=== PATIENT | male | born 1955 | race Caucasian/White ===

== ENCOUNTER 2018-06-03 05:55 | Emergency (ER) | payer OTHER, SELFPAY ==
[2018-06-03 06:08] VITALS: BP 169/97; PULSE 114; RESP 20; TEMP 36.6; O2SAT 98; BMI 28.1
--- NOTE | 2018-06-03 06:21 | ED.HA ---
HPI - Headache <Ping Neumann DO - Last Filed: 06/04/18 19:40> General Chief Complaint: Headache Stated Complaint: headache x 2 months, neck/back pain Time Seen by Provider: 06/03/18 06:20 Source: patient Mode of arrival: ambulatory Limitations: no limitations History of Present Illness HPI Narrative: Patient is a 62-year-old male who presents with neck pain. It has been ongoing for a number of months. He has pain to the up the the base of his skull. He has been taking Aleve is 2 with a time twice a day without any relief. He has decreased range of motion due to pain. If he turns his head is to the right he gets a tingling in his left arm. His he has no numbness or tingling otherwise in his arms no weakness. He did have an abscess back in 2017 which was drained he thinks that this may be related to that. He feels like it is causing a headache. He has no vision changes and the headache is really at the top of his neck the. Sometimes the pain shoots up over his head and last for 1-2 seconds and goes away. Related Data Previous Rx's Medication Instructions Recorded ketorolac 10 mg PO Q6H PRN #14 tab 06/03/18 methylprednisolone [Medrol (Jp)] See Label Instructions PO PER PKG 06/03/18 DIR #21 each Allergies Allergy/AdvReac Type Severity Reaction Status Date / Time No Known Drug Allergies Allergy Verified 06/03/18 06:20 Review of Systems <DO Phyllis Buckley Last Filed: 06/04/18 19:40> Review of Systems ROS Unobtainable: All systems reviewed & are unremarkable except as noted in HPI and below Constitutional Denies chills, Denies fever(s), Denies lethargy and Denies weakness Eyes Denies change in vision, Denies eye discharge, Denies irritation and Denies loss of vision Cardiovascular Denies chest pain, Denies irregular heart rhythm, Denies lightheadedness, Denies palpitations, Denies dyspnea, Denies dyspnea on exertion and Denies orthopnea Respiratory Denies cough, Denies dyspnea, Denies dyspnea on exertion and Denies wheezing Gastrointestinal Gastrointestinal: Denies abdominal pain, Denies change in bowel habits, Denies diarrhea, Denies nausea and Denies vomiting Musculoskeletal Reports as per HPI and Reports tingling (left arm sometimes ) Integumentary/Breasts Denies pruritus, Denies erythema, Denies rash and Denies wounds Neurologic Denies loss of vision, Reports tingling (left arm sometimes ) and Denies weakness Endocrine Denies palpitations Allergic/Immunologic Denies wheezing Exam <Ping Neumann DO - Last Filed: 06/04/18 19:40> Initial Vital Signs Initial Vital Signs: Vital Signs Temperature 98 F 06/03/18 06:08 Pulse Rate 114 H 06/03/18 06:08 Respiratory Rate 20 06/03/18 06:08 Blood Pressure 169/97 H 06/03/18 06:08 Pulse Oximetry 98 06/03/18 06:08 GENERAL: Alert well-appearing male no acute distress resting comfortably HEENT: Head atraumatic,EOMI, pupils reactive NECK: Mild cervical pain more up at C1-C2 urea no step-off some paraspinal muscle pain, slight decreased range of motion more towards the left than right. CARDIOVASCULAR: Regular rate and rhythm without murmurs, rubs or gallops. RESPIRATORY: Breath sounds equal bilaterally, no wheezes rales or rhonchi. ABDOMEN: Soft, nontender. Normoactive bowel sounds all 4 quadrants. No guarding or rebound. EXTREMITIES: Normal range of motion, no clubbing or edema. Neurovascularly intact NEUROLOGICAL: Alert and oriented x4.Normal gait and speech. Cranial nerves II through XII grossly intact. Appliance Mechanic strength equal bilaterally sensation do extremities intact. SKIN: Warm, dry, no laceration, no petechiae, no rashes or lesions. <Juan Marcelo, DO - Last Filed: 06/03/18 10:34> Initial Vital Signs Initial Vital Signs: Vital Signs Temperature 98 F 06/03/18 06:08 Pulse Rate 114 H 06/03/18 06:08 Respiratory Rate 20 06/03/18 06:08 Blood Pressure 169/97 H 06/03/18 06:08 Pulse Oximetry 98 06/03/18 06:08 Course <Ping Neumann DO - Last Filed: 06/04/18 19:40> Orders Ordered: Discontinued Medications Ketorolac Tromethamine (Toradol) 30 mg IM NOW ONE Stop: 06/03/18 06:24 Last Admin: 06/03/18 06:33 Dose: 30 mg Vital Signs - 8 hr 06/03/18 06:08 06/03/18 07:43 Temperature 98 F Pulse Rate 114 H 82 Respiratory Rate 20 16 Blood Pressure 169/97 H Blood Pressure [Right Arm] 149/87 H Pulse Oximetry 98 98 <Juan Marcelo, DO - Last Filed: 06/03/18 10:34> Orders Ordered: Discontinued Medications Ketorolac Tromethamine (Toradol) 30 mg IM NOW ONE Stop: 06/03/18 06:24 Last Admin: 06/03/18 06:33 Dose: 30 mg Vital Signs - 8 hr 06/03/18 06:08 06/03/18 07:43 Temperature 98 F Pulse Rate 114 H 82 Respiratory Rate 20 16 Blood Pressure 169/97 H Blood Pressure [Right Arm] 149/87 H Pulse Oximetry 98 98 MDM - Headache <Ping Neumann DO - Last Filed: 06/04/18 19:40> Imaging Data CT Cervical: Radiologist's impression: PROCEDURE: CT CERVICAL SPINE WO CON INDICATIONS: increased pain, numbness, no injury TECHNIQUE: Noncontrast 3 mm thick sections acquired from the skull base to the T4 level. Sagittal and coronal reformats were then constructed. For radiation dose reduction, the following was used: automated exposure control, adjustment of mA and/or kV according to patient size. COMPARISON: None. FINDINGS: Image quality: Excellent. Bones: No fractures or dislocations. Visualized superior ribs are intact. Soft tissues: Prevertebral soft tissues are normal in thickness. No paravertebral hematomas. No apical pneumothoraces. IMPRESSION: No fracture. No acute osseous lesion. If symptoms and/or clinical suspicion for pathology persists, evaluation with MRI may be helpful for further assessment. Dictated by: Joan Aparicio MD, PhD on 06/03/2018 at 8:33 Approved by: Joan Aparicio MD, PhD on 06/03/2018 at 8:37 Discharge Plan Departure Patient Disposition: Home Clinical Impression: Cervical radiculopathy Discharge Date/Time: 06/03/18 08:00 Interventions: ED Discharge Assessment Last Done: 06/03/18 08:00 Instructions: DI for Cervical Radiculopathy Activity Restrictions/Additional Instructions: *You have been diagnosed with [ cervical radiculopathy and bone spurs ] *What to do: *Take medications as directed *Follow up with your primary care provider in 2-3 days, call for an appointment. Let them know you were seen in the Emergency Department and that we ask that you be seen in follow up for further evaluation of your cervical radiculopathy and bone spurs. It seems reasonable to consider referral to spine surgeon at this point. *Return to ER if you should have any new, worsening or concerning symptoms Prescriptions: New ketorolac 10 mg tablet 10 mg PO Q6H PRN (Reason: pain) Qty: 14 RF: 0 methylprednisolone [Medrol (Jp)] 4 mg tablets,dose pack See Label Instructions PO PER PKG DIR Qty: 21 RF: 0 Referrals: Rudy Mcfarlane MD [Physician] - Christiano Orozco MD [Primary Care Provider] -
[2018-06-03] MEDS: KETOROLAC 60 MG/2 ML VIAL 30 MG IM (06:33)
--- NOTE | 2018-06-03 06:36 | PC.NURSE ---
He says he has had neck pain for months and his left hand is tingling.He has strong radial pulses bilateral and no loss of any sensation.
--- NOTE | 2018-06-03 06:48 | DI.CT.S_ITS ---
PROCEDURE: CT CERVICAL SPINE WO CON INDICATIONS: increased pain, numbness, no injury TECHNIQUE: Noncontrast 3 mm thick sections acquired from the skull base to the T4 level. Sagittal and coronal reformats were then constructed. For radiation dose reduction, the following was used: automated exposure control, adjustment of mA and/or kV according to patient size. COMPARISON: None. FINDINGS: Image quality: Excellent. Bones: No fractures or dislocations. Visualized superior ribs are intact. Soft tissues: Prevertebral soft tissues are normal in thickness. No paravertebral hematomas. No apical pneumothoraces. IMPRESSION: No fracture. No acute osseous lesion. If symptoms and/or clinical suspicion for pathology persists, evaluation with MRI may be helpful for further assessment. Dictated by: Joan Aparicio MD, PhD on 06/03/2018 at 8:33 Approved by: Joan Aparicio MD, PhD on 06/03/2018 at 8:37
[2018-06-03 07:43] VITALS: BP 149/87; PULSE 82; RESP 16; O2SAT 98
--- NOTE | 2018-06-03 08:00 | PC.NURSE ---
CT disc provided.
== END 2018-06-03 08:00 | disposition home or self-care (01) ==
PROVIDERS: Emergency Provider Emergency Medicine; PCP Family Medicine
DX: M54.12 Radiculopathy, cervical region (principal)
CPT/HCPCS: 72125; 96372; 99283; 99284; J1885

== ENCOUNTER → 2018-07-02 09:42 | Outpatient (CLI) | payer OTHER, SELFPAY ==
--- NOTE | 2018-07-02 09:48 | DI.RAD.S_ITS ---
PROCEDURE: XR LUMBAR SPINE MIN 4V INDICATIONS: LOW BACK PAIN TECHNIQUE: 3 weight bearing views of the lumbar spine acquired. COMPARISON: None. FINDINGS: Bones: 5 nonrib-bearing vertebrae are present. There is mild dextrocurvature of the mid lumbar spine. No acute vertebral body compression fractures. Multilevel lumbar spondylosis with degenerative endplate changes, endplate osteophyte formation, and loss of intervertebral spacing at L4-5 and L5-S1. Findings are most pronounced at L5-S1. Mid-lower lumbar facet arthropathy. No suspicious bony lesions. Soft tissues: Overlying bowel gas pattern is normal. No suspicious soft tissue calcifications. Vascular calcifications are present. IMPRESSION: Mild to moderate multilevel lumbar spondylosis most pronounced at the thoracolumbar junction and lumbosacral junction. Findings are most severe at L5-S1. Dictated by: Mika Maguire M.D. on 07/02/2018 at 12:04 Approved by: Mika Maguire M.D. on 07/02/2018 at 12:07
[2018-07-03 14:25] LABS: PSA Free % 20 % (calc) (> 25)
== END ==
PROVIDERS: PCP Family Medicine; Visit Provider Internal Medicine
DX: M54.5 Low back pain (principal); R97.20 Elevated prostate specific antigen [PSA]
CPT/HCPCS: 36415; 72100; 84153; 84154

== ENCOUNTER → 2018-08-11 07:46 | Outpatient (CLI) | payer OTHER, SELFPAY ==
--- NOTE | 2018-08-11 | DI.MRI.S_ITS ---
PROCEDURE: MR CERVICAL SPINE WO/W CON INDICATIONS: Cervicalgia TECHNIQUE: Noncontrast sagittal T1 spin echo and T2 fast spin echo, sagittal STIR, foraminal oblique sagittal T2 fast spin echo, axial gradient echo or T2 fast spin echo through the cervical spine. After the administration of contrast, axial and sagittal T1 spin echo with fat saturation through the cervical spine. COMPARISON: None. FINDINGS: Image quality: Significant motion is present throughout the exam, severely limiting evaluation. Alignment and curvature: There is overall straightening of normal cervical curvature. Marrow: Marrow is normal in overall signal, without suspicious enhancement. Spinal cord: Visualized spinal cord has normal size and signal. No cerebellar tonsillar herniation. No abnormal intramedullary enhancement. Paraspinous soft tissues: No paravertebral masses or suspicious enhancement. Discs: There is gross appearance of at least mild multilevel disc desiccation. C2-3: No disc bulge or spinal stenosis. Minimal bilateral foraminal narrowing with uncovertebral hypertrophy. C3-4: Significant motion is present at this level. Mild disc bulge with mild spinal stenosis. There is likely severe right and moderate left foraminal narrowing with uncovertebral hypertrophy. C4-5: Significant motion is present this level. Disc bulge is present with mild to moderate spinal stenosis. There is at least moderate bilateral foraminal narrowing with uncovertebral hypertrophy. C5-6: Significant motion is present at this level. Mild disc bulge with questionable posterior central protrusion. Moderate spinal stenosis. There is likely a least moderate bilateral foraminal narrowing with uncovertebral hypertrophy. C6-7: Significant motion is present at this level. Mild disc bulge with moderate spinal stenosis. There is likely a least mild to moderate bilateral foraminal narrowing with uncovertebral hypertrophy. C7-T1: Significant motion is present at this level. No gross spinal stenosis or foraminal narrowing. IMPRESSION: 1. Severely limited exam, bordering on portions that are nondiagnostic. 2. Multilevel disc bulges. 3. Multilevel spinal stenosis felt to be a likely at least mild to moderate at C4-5, C5-6 and C6-7 secondary to disc bulges. 4. Multilevel at least moderate foraminal narrowing as above with uncovertebral arthropathy. Dictated by: Inna Batres M.D. on 08/11/2018 at 12:17 Approved by: Inna Batres M.D. on 08/11/2018 at 12:25
== END ==
PROVIDERS: PCP Internal Medicine; Visit Provider Internal Medicine
DX: M50.21 Other cervical disc displacement, high cervical region (principal); M48.02 Spinal stenosis, cervical region; M47.812 Spondylosis without myelopathy or radiculopathy, cervical region
CPT/HCPCS: 72156; A9579

== ENCOUNTER → 2019-01-07 06:37 | Outpatient (CLI) | payer OTHER, SELFPAY ==
--- NOTE | 2019-01-07 | DI.MRI.S_ITS ---
PROCEDURE: MR CERVICAL SPINE WO CON INDICATIONS: Cervicalgia TECHNIQUE: Noncontrast sagittal T1 spin echo and T2 fast spin echo, sagittal STIR, foraminal oblique sagittal T2 fast spin echo, and axial gradient echo or T2 fast spin echo through the cervical spine. COMPARISON: [facility], MR, MR CERVICAL SPINE WO/W CON, 08/11/2018, 8:26. FINDINGS: Image quality: Motion degraded examination. Alignment and Curvature: Straightening of the normal lordotic curvature. Trace retrolisthesis of C5 on C6 Bone Marrow: No acute fracture. Multilevel degenerative endplate sclerosis and spurring. Diffuse facet arthropathy. Spinal Cord: Visualized spinal cord has normal size and signal. No cerebellar tonsillar herniation. Paraspinous Soft Tissues: No paravertebral masses. Prevertebral soft tissues are normal in thickness. C2-C3: Normal appearance. C3-C4: Bilateral uncovertebral arthropathy and posterior intervening disc osteophyte complex, which is asymmetric, left greater than right and bilateral facet disease. Mild left and narrowing. Severe left foraminal stenosis with nerve root compression. Mild right foraminal narrowing. No interval change C4-C5: Bilateral uncovertebral arthropathy and posterior intervening disc osteophyte complex, which is mildly asymmetric, left greater the right. Bilateral facet disease. Mild left-sided canal narrowing. Severe left foraminal stenosis. Moderate to severe right foraminal narrowing. This appears progressed on the left side since 08/11/18 C5-C6: Bilateral uncovertebral arthropathy and posterior intervening disc osteophyte complex, and bilateral facet disease. Mild canal narrowing partial effacement of the anterior and posterior thecal sac. Severe left foraminal stenosis. Moderate right foraminal narrowing. Overall, no definite interval change although limited evaluation of the prior study due to motion artifact C6-C7: Mild central canal narrowing. Mild right foraminal narrowing. Severe left foraminal stenosis which is grossly unchanged C7-T1: Normal appearance. IMPRESSION: Multilevel cervical spondylosis and facet arthropathy. Slight interval progression in left-sided foraminal narrowing at C4-C5. Elsewhere, grossly unchanged numerous, bilateral foraminal stenoses as detailed above by spinal level. Trace spondylolisthesis as above. Dictated by: Sherwin Beatty M.D. on 01/07/2019 at 10:08 Approved by: Sherwin Beatty M.D. on 01/07/2019 at 10:15
== END ==
PROVIDERS: PCP Internal Medicine; Visit Provider Physical Medicine & Rehabilitation
DX: M47.812 Spondylosis without myelopathy or radiculopathy, cervical region (principal)
CPT/HCPCS: 72141

== ENCOUNTER → 2019-03-25 07:54 | Outpatient (CLI) | payer OTHER, SELFPAY ==
[2019-03-25 09:14] LABS: BUN Creatinine Ratio 15.5 (6-22); Blood Urea Nitrogen 17 mg/dL (9-20); Estimated Glomerular Filt Rate > 60.0 mL/min (>60)
== END ==
PROVIDERS: PCP Internal Medicine; Visit Provider Orthopaedic Surgery
DX: Z01.818 Encounter for other preprocedural examination (principal)
CPT/HCPCS: 36415; 82565; 84520

== ENCOUNTER → 2019-03-29 06:49 | Outpatient (CLI) | payer OTHER, SELFPAY ==
--- NOTE | 2019-03-29 | DI.MRI.S_ITS ---
PROCEDURE: MR BRACHIAL PLEXUS WWO CON INDICATIONS: Brachial plexus disorders TECHNIQUE: Noncontrast axial, coronal, and sagittal T1 spin echo and STIR through the affected brachial plexus region. Additional axial T1 spin echo and coronal T2 fast spin echo acquired through both brachial plexuses with a large [id number]. Optional contrast may be given, followed by axial, coronal, and sagittal T1 spin echo with fat saturation through the affected side. COMPARISON: [facility], CT, CT CERVICAL SPINE WO CON, 06/03/2018, 6:40. [facility], MR, MR CERVICAL SPINE WO/W CON, 08/11/2018, 8:26. [facility], MR, MR CERVICAL SPINE WO CON, 01/07/2019, 6:48. [facility], , CERVICAL SPINE INTERLAMINAR, 01/26/2019, 7:16. FINDINGS: Image quality: Diagnostic, with note made of motion artifact. Brachial plexus: The C5-T1 origins of the brachial plexus appear normal, without pseudomeningoceles to suggest nerve root avulsion. Within the scalene triangle, costoclavicular space, and pectoralis minor space, the visualized trunks and/or cords of the brachial plexus demonstrate normal morphology and signal. No abnormal enhancement can be seen along the course of the brachial plexus. Soft tissues: No supraclavicular adenopathy by size criteria. Superior pleural surfaces are normal in thickness. Jugular veins and carotid arteries appear normal in size. Bones: Marrow demonstrates normal overall signal. Cervical spine degenerative changes are seen, which are better demonstrated on the recent prior cervical spine MRI examinations. IMPRESSION: No significant abnormality of the brachial plexus is seen. No abnormal enhancement is seen. Dictated by: Francesco Child M.D. on 03/29/2019 at 9:43 Approved by: Francesco Child M.D. on 03/29/2019 at 9:46
== END ==
PROVIDERS: PCP Internal Medicine; Visit Provider Orthopaedic Surgery
DX: G54.0 Brachial plexus disorders (principal)
CPT/HCPCS: 71552; A9579

== ENCOUNTER → 2019-04-01 10:09 | Outpatient (CLI) | payer OTHER, SELFPAY ==
[2019-04-01 11:36] LABS: Add Manual Diff / Slide Review NO; Basophils Absolute Auto 100 /uL (0-100); Eosinophils Absolute Auto 200 /uL (0-450); Hematocrit 44.1 % (41-53); Lymphocytes Absolute Auto 3200 /uL (1100-4500); Lymphocytes Percent Auto 39.8 % (25-40); Mean Corpuscular Hemoglobin 30.5 PG (26-34); Mean Corpuscular Volume 89.8 fL (80-100); Monocytes Absolute Auto 400 /uL (0-900); Monocytes Percent Auto 4.9 % (3-14); Neutrophils Absolute Auto 4100 /uL (1500-7000); Neutrophils Percent Auto 51.3 % (50-75); Platelet Count 242 X10^3/uL (150-400); Red Blood Cell Count 4.91 X10^6/uL (4.5-5.9); Red Cell Distribution Width 14.6 % (11.6-14.8); White Blood Cell Count 8.1 X10^3/uL (4.5-11.0)
== END ==
PROVIDERS: Family Provider Internal Medicine; PCP Internal Medicine; Visit Provider Orthopaedic Surgery
DX: Z01.818 Encounter for other preprocedural examination (principal)
CPT/HCPCS: 36415; 85025; 93005

== ENCOUNTER 2019-04-12 06:06 | Inpatient (IN) | payer OTHER, SELFPAY ==
[2019-04-06 12:48] VITALS: BMI 27.0
[2019-04-12] VITALS (19 sets, daily range): BP systolic 115–169; BP diastolic 50–97; PULSE 76–99; RESP 8–20; TEMP 36.3–37.1; O2SAT 2–99; BMI 26.9
--- NOTE | 2019-04-12 | DI.RAD.S_ITS ---
PROCEDURE: XR CERVICAL SPINE 2V OR 3V INDICATIONS: C3-7 ANTERIOR DISCECTOMY AND ANT/POST INSTRUMENTATION TECHNIQUE: 3 view(s) of the cervical spine were acquired. COMPARISON: [facility] DELMA Fitzpatrick, XR CERVICAL SPINE 2 OR 3 VIEWS, 12/16/2018, 13:23. FINDINGS: 3 spot fluoroscopic images demonstrating C3-C7 ACDF. Expected intraoperative alignment. Dictated by: Sherwin Beatty M.D. on 04/12/2019 at 12:18 Approved by: Sherwin Beatty M.D. on 04/12/2019 at 12:19
--- NOTE | 2019-04-12 07:28 | PM.PREOP ---
Pre-operative Note Interval Note History & Physical reviewed/Exam performed by Physician: Yes Changes to H&P: No
[2019-04-12] MEDS: LACTATED RINGERS 1,000 ML 42 ML IV ×2 (07:38→10:20)
[2019-04-12] MEDS: CEFAZOLIN 2 GM/100 ML FROZ.PIGGY IV ×3 (08:00→23:58)
--- NOTE | 2019-04-12 08:39 | SUR.OPER ---
Prone on padded OR bed, head in foam head support, gel chest rolls, gel pad under knees, pillow under lower legs, toes free of pressure, arms secured with gel pad and tucked. Safety belt at thigh.
[2019-04-12] MEDS: BUPIVACAINE 0.25% W/ EPI 30 ML VIAL 60 ML INJ (08:51)
[2019-04-12] MEDS: THROMBIN (RECOMBINANT) 5,000 UNIT VIAL 5000 UNIT TOP (08:57)
[2019-04-12] MEDS: SODIUM CHLORIDE 0.9% 1,000 ML, GENTAMICIN 80 MG IRR (08:58)
--- NOTE | 2019-04-12 11:56 | P.OP_ITS ---
Operative Date/Time/Diagnoses Date of procedure: 04/12/19 Time of procedure: 11:56 Pre-op diagnosis: Cervical stenosis with myelopathy Post-op diagnosis: same Procedure & Clinicians Procedure: C3-4, C4-5, C5-6, C6-7 posterior fusion C3 through 7 posterior instrumentation C3-4, C4-5, C5-6, C6-7 ACDF with cages Iliac crest bone graft aspirate Use of microscope Same procedure as scheduled: Yes Indications: [age] year old male with intractable pain from cervical stenosis. They had failed conservative management and requested operative intervention. Risks and benefits of surgery were discussed and appropriate consents were obtained. Surgeon: Rudy Flores Buckle Attaching Machine Operator: Flower Duvall Anesthesia Type: General Operative Notes Findings: None Closure Type: primary Specimen(s): none sent Prosthetic devices, grafts, tissues, transplants, or devices: [place] DTrax posteriorly Bobbi PERRY-C anteriorly Applied: catheter Estimated Blood Loss (mL): 10 Blood products transfused: none Procedure in detail: The patient was brought to the operating room and intubated on the stretcher. Time-out was performed. There were then rolled over to the well-padded prone position on chest rolls. Two views of fluoroscopy were taken to confirm our positioning. The neck was then prepped and draped in the standard sterile fashion. Preoperative antibiotics were given. Using fluoroscopy, we localized for planned incisions. Two small 8 mm horizontal incisions were made over the lateral masses approximately 2 fingers below our planned surgical site. We then spread down and opened up the fascia. Then percutaneously placed our Steinmann pin through the soft tissue into the facet joint at C3-4 under fluoroscopic visualization. We used the reamer to decorticate the lateral masses compromising the facet. A trocar was placed over the Steinmann pin into the facet and then the pin was removed. We used a rasp to decorticate the facet joint itself. We then filled the DTrax cage with Primagen bone graft and impacted it into the facet joint at C3-4 under fluoroscopic guidance. We then took the lateral mass screw and placed it through the cage and then into the lateral mass for the posterior screw fixation. The salesperson driver was removed and we packed more bone graft down the trocar covering the lateral mass. This was done bilaterally. This completed the instrumented posterior fusion at C3-4. We then went to the next levels at C4-5, C5-6, and C6-7. The same procedure was performed with preparation, placement of the cage with bone graft, and placement of the screw for bilateral instrumented posterior fusion at C4-5, C5-6, and C6- 7. The wounds were irrigated. The skin was closed and a sterile dressing placed. The patient was then rolled over to the table in the supine position and positioned for the anterior surgery. The arms were tucked and a shoulder roll was placed. The neck and left iliac crest were prepped and draped in the standard sterile fashion. A 3 cm oblique incision was made on the left side of the neck along the skin fold. Bovie was used to split the platysma. We then bluntly dissected a standard anterolateral approach to the precervical fascia. A marker was placed and x-ray taken to confirm our positioning. We then used the Bovie to the subperiosteally lift up the longus colli muscles. Self-retaining retractors were placed. We then placed [facility] [place] pins and distracted across the C6-7 disc space. We brought in the microscope. A complete anterior discectomy was performed at C6-7 using a combination of scalpel, curettes, pituitaries, and Kerrison rongeurs. The bur was used to take down the posterior osteophytes as well as decorticate the disc space. We then released the PLL and used the Kerrison to remove any further posterior osteophytes and disc material. At the end a nerve hook could be swept cephalad caudally and out the neural foramen and everything was open. We trialed for our cages. A small stab incision was made over the left iliac crest. We placed a Jamshidi aspiration needle into the iliac crest and aspirated several mL of bone marrow graft. We then took our Bobbi LDR PERRY-C cage and packed it with Primagen, and mixed in the bone marrow aspirate. The cage was then placed into the disc space under fluoroscopic guidance. The 2 locking plates were placed through the cage for fixation. This completed the ACDF at C6-7. We then went to the next levels at C5-6, C4-5, then C3-4. Again a complete diskectomy was performed including taking down the PLL and posterior osteophytes and disc material. The endplates were prepped with a bur. We trialed and then packed our PERRY-C cage with the bone graft and then placed into the disc space. The locking plates were placed as well. This completed the ACDFs at C3-4, C4-5, and C5-6. The superior plate at C 3-4 going into the C3 vertebral body was visible coming out of the cage but then was buried in bone the remainder. Final x-rays were taken. The wound was copiously irrigated. There was no bleeding. The carotid was bleeding nicely. The platysma was closed. The superficial skin were closed. A Steri-Strip was placed over the iliac crest incision. Sterile dressings were placed. The patient was then extubated and brought to the recovery room without complication. Complications: none Post-operative Condition: stable Disposition: PACU Plan for aftercare: Inpatient. Up with PT.
[2019-04-12] MEDS: HYDROMORPHONE 2 MG INJ IV ×4 (12:15→12:47)
--- NOTE | 2019-04-12 12:31 | SUR.PHASEI ---
easily arrousable, placed on oxygen at 2l/cannula for decreased oxygen saturation.
[2019-04-12] MEDS: LORazepam 2 MG/ML INJ 0.25 MG IV (12:37)
--- NOTE | 2019-04-12 13:12 | SUR.PHASEI ---
patient requests turn to left side. assisted to log roll onto left side supported with pillows.
--- NOTE | 2019-04-12 13:43 | PC.NURSE ---
Addendum entered by Suzan Mittal R.N. 04/12/19 15:53: head of bed elevated above 30 degrees at all times, except during repositioning. Addendum entered by Suzan Mittal R.N. 04/12/19 15:41: oriented pt to call light, drowsy, closes eyes with verbal contact, this residential mortgage underwriter has to repeat questions 2-3 times. Rates 8/10 aching and throbbing to posterior neck and slightly radiating to bilateral shoulders. Pt had soft collar in place, requested off, removed at 1420, ice pack to both surgical sites. head supported with rolled blanket and pillows. pt repositioned towards left side supported with pillows. Scheduled decadron given without effect. Pt more awake, requesting pain meds, IV Dilaudid prn given at 1525. Pt has had only ice chips, states sore throat, has regualr texture diet at home, no modifications. report given to evening RN. Original Note: Day Shift- Report rec'd from RN Coordinator Levon at 1340. Pt arrived to unit at 1335.
[2019-04-12] MEDS: LACTATED RINGERS 1,000 ML 125 ML IV ×2 (14:05→22:50)
--- NOTE | 2019-04-12 14:09 | CM.DANOTE ---
Discharge Planning/Care Management DCP: assessement: initiated: case received this morning, EMR reviewed. Pt was scheduled to admit to room 210 after surgery but had not arrived to the floor yet. Pt is a 63 year old male who admitted this morning 0600 for a planned spinal/cervical surgery. Surgeon: Dr. Rudy Flores. Payer: [place] [employer] He identifies his plan for post hospital stay as home with his brother to assist him for a couple days. Note on his demographic sheet that he has 2 brothers, Antione and Asif/both listed as living in [place]. Pt has just arrived to floor from surgery and is in process of being admitted. OT and PT will be seeing him when he is more alert. DCP team will check in tomorrow and follow to confirm his plan for home with brother's help and to see if this remains appropriate. CM Discharge Assessment Start: 04/12/19 14:07 Freq: Status: Active Protocol: Document 04/12/19 14:08 ITV (Rec: 04/12/19 14:09 ITV [id number]) Discharge Planning Assessment Advance Directives? No History Provided By Medical Record Prior Living Arrangements Mobile home Household Members none Review Status In Process Pre-Anesthesia Assessment Start: 04/06/19 12:48 Freq: Status: Active Protocol: Document 04/06/19 12:48 CAB (Rec: 04/06/19 13:43 CAB [id number]) Pre-Anesthesia Assessment PAC Comment Pre-op EKG, PCP recommendations reviewed with Dr. Todd. As long as pt is active and asymptomatic, he may proceed with surgery. Pt denied any cardiac symptoms during PAC assess. Shyann roy/Dr Chris Flores's office will confirm with pt that he is active and without compliants. She was able to find a prior EKG report from 2016 that reports T-wave abnormality, report scanned to record Patient Information Reviewed Via Phone Assessment Assessment Completed With Patient Diagnostic Results BMP/CMP,CBC,EKG Comment Labs/EKG @ 04/01/19 Primary Care Provider Rudy Mcfarlane Seen Specialist in Last 12 Months Yes Specialist Seen Opthamologist/Cat Skinner Comment PCP visit 04/11/19 scanned to record Primary Language Libyan Websphere Portal Developer Required No Height 171.45 cm Weight 79.379 kg Body Mass Index (BMI) 27.0 Hearing Ability Normal Visual Assist Glasses Dentition Type Full- Upper & Lower Barriers to Learning None Hx Anesthesia Reactions Yes: Muscle jerking w/sedation for esophageal dilation Hx Family Anesthesia Reaction No Hx Malignant Hyperthermia No Hx Blood Transfusions No Anesthesia Review Requested No General Operations Manager Yes: Limited financial means alcohol intake current alcohol intake frequency holidays/special occasions only Smoking Status Current every day smoker Smoking cigarettes per day 1 Substance Use Type marijuana Comment Pt advised not to smoke marijuana 24 hours prior Pain Present Pain Reported Musculoskeletal Symptoms Back Pain,Limited Range of Motion,Muscle Weakness,Neck Pain,Numbness,Radiating Pain into Limb,Tingling History of Falling (Recent or History of No ) Patient is completely paralyzed or No completely immobile Mental Status Oriented to own ability Is patient on oxygen? No Does patient have KRUEGER/SOB No Hx Sleep Apnea No Currently Taking a Beta Josette No Can You Climb a Flight of Stairs Without Yes SOB Hx Chest Pain Yes: w/SC 1992, no CP since Hx SOB No Hx Syncope or Dizziness No Anti-Coagulant Therapy No Has a Packaging Engineer No Cardiac Testing No Hx Pacemaker/ICD No Pacemaker Rep Required? No Cardiac Clearance Received Not Applicable Diet Type At Home Regular dysphagia Yes: Esophageal swallow difficulty, s/p dilation x 5 Urinary Catheter Present No Hx Urinary Self Catheterization No Diabetes No Hx Drug Resistant Organism No Presence of External or Internal Medical No Devices Have you traveled outside the [place] in the last 30 days? Marital Status Lives With none Prior Living Arrangements Mobile home Number of Floors (Floors) One Floor Support System Sibling(s) Does the Patient Have Assistance After Yes Surgery Patient Discharge Plan Description Return Home Comment Pt advised 2-3 day length of stay per surgeon. Brother will stay w/pt at [place] Feels Safe in Current Environment Yes Been Physically Hurt or Threatened By a No Person in Current Environment Do you have thoughts of harming yourself None or others? Are you currently considering suicide? No Do you have a plan to hurt yourself or No Plan others? Do You Have Any Spiritual Beliefs That No May Affect Your HC Choices? Do You Have Any Cultural Practices That No May Affect Your HC Choices? Comment Vamsi Who Can We Speak to About Patient's Care Family, friends Identifying Code for Release of Patient Declines to issue Information Health Care Proxy/Next of Kin Asif (brother) Health Care Proxy or [phone] Emergency Contact Name Asif (brother) Emergency Contact or [phone] Advance Directives? No Power of Environmental Studies Faculty Member No PAC Instructions Medications to take/avoid, Nasal antibiotic,No ETOH/ petroleum product on skin DOS, NPO,Sensory aids,Sturdy shoes/ comfortable clothes,Do not bring valuables and remove jewelry
--- NOTE | 2019-04-12 14:14 | SUR.OPER ---
Supine on padded OR bed, head on gel donut, towel between shoulder blades, arm padded and tucked at side, legs uncrossed, safety belt at thigh, tape over blanket over lower legs .
[2019-04-12] MEDS: DEXAMETHASONE 4 MG/ML VIAL IV ×3 (14:36→23:54)
[2019-04-12] MEDS: HYDROMORPHONE 0.5 MG INJ IV (15:25)
[2019-04-12] MEDS: HYDROCODONE/ACET 5/325 TABLET 2 TAB PO ×2 (16:13→19:51)
[2019-04-12] MEDS: GABAPENTIN 400 MG CAPSULE 1200 MG PO ×2 (16:23→20:56)
--- NOTE | 2019-04-12 16:23 | PT-IP ANOTE ---
PT orders received. I contacted the patient at 1618 to determine appropriateness for evaluation, but he was still too groggy from anesthesia to participate. I donned the soft collar and instructed the patient to ask for help if the collar needed any further adjustment. PT will check on the pt again morning of 04/13.
[2019-04-12] MEDS: HYDROCODONE/ACET 5/325 TABLET 1 TAB PO ×2 (18:20→22:49)
[2019-04-12] MEDS: CELECOXIB 200 MG CAPSULE PO (20:57)
[2019-04-12] MEDS: diazePAM 2 MG TABLET PO (20:57)
--- NOTE | 2019-04-12 21:19 | PC.NURSE ---
Pain Management P: Patient complained of 9/10 pain most of the afternoon shift. I: The nurse gave the patient IV dilaudid. 30 minutes later patient complained of having the same amount of pain and HR dropped from 87 bpm to 67 bpm with shallow respirations present. The student nurse and the nurse gave patient 10 mg of norco and continuously monitored patient's vital signs. The student nurse assisted the patient into a side-lying position with extra pillows to relieve pressure on the patient's head and neck. Ice was also applied over the patient's incision to assist with pain management. After norco administration patient's O2 sats were at 99% and SBP sat in the 140s. Student nurse and the instructor administered 2 mg valium in addition to patient's other scheduled medications for muscle spasms across shoulders and neck. E: Patient is still complaining of a 8/10 pain. Patient's vital signs are normal with no signs of respiratory depression. Patient is due for another norco at 2230. Patient is aware and compliant with the next dose of pain medication. S: Bed is low and locked; call light within reach.
[2019-04-13] MEDS: HYDROCODONE/ACET 5/325 TABLET 2 TAB PO ×3 (02:29→10:52)
[2019-04-13] MEDS: DEXAMETHASONE 4 MG/ML VIAL IV (05:53)
[2019-04-13 06:20] VITALS: BP 114/59; PULSE 95; RESP 16; TEMP 37.3; O2SAT 96
--- NOTE | 2019-04-13 06:52 | PM.PNPO.1 ---
Subjective Subjective Date Patient Seen: 04/13/19 Time Patient Seen: 06:52 Interval history: He is doing great. Pain is manageable the back of the neck. No more arm symptoms. He feels like he is swallowing much better than he had prior to surgery. He can hold his head in an upright position now. Exam Vital Signs (past 8 hours): - 04/12/19 23:00 04/13/19 06:20 Temperature 98.7 F 99.2 F Pulse Rate 99 H 95 H Respiratory Rate 16 16 Blood Pressure 135/72 114/59 L Pulse Oximetry 97 96 Oxygen Delivery Method Nasal Cannula Oxygen Flow Rate 2 Const Orientation: alert and oriented x3 Back/Spine/Pelvis Other: Anterior dressing CDI. Mild drainage posterior dressing. 5/5 motor both upper extremities. Assessment & Plan Post-op Postoperative Procedures: Procedures Operation Date: 04/12/19 07:45 Actual Procedures Side Surgeon p C3-7 anterior discectomy & anterior/posterior instrumented fusion Rudy Flores MD he is doing great. Discharge home today after physical therapy. Quality VTE Deep Vein Thrombosis/Pulmonary Embolism Present on Admission: No
[2019-04-13 07:40] VITALS: BP 126/64; PULSE 89; RESP 16; TEMP 36.8; O2SAT 93
[2019-04-13] MEDS: DOCUSATE 100 MG CAPSULE PO (07:46)
[2019-04-13] MEDS: GABAPENTIN 400 MG CAPSULE 1200 MG PO (07:47)
[2019-04-13] MEDS: CELECOXIB 200 MG CAPSULE PO (07:47)
[2019-04-13] MEDS: hydrOXYzine pamoate 25 MG CAPSULE PO (07:47)
[2019-04-13] MEDS: diazePAM 2 MG TABLET PO (08:20)
[2019-04-13] MEDS: OXYCODONE IR 5 MG TABLET PO (08:44)
--- NOTE | 2019-04-13 08:44 | OT.IP.EVAL ---
Current Diagnoses Brachial plexus disorders (04/12/19) Spinal stenosis, cervical region (04/12/19) Radiculopathy, cervical region (04/12/19) Surgery Performed Operation Date: 04/12/19 07:45 Actual Procedures p C3-7 anterior discectomy & anterior/posterior instrumented fusion - Rudy Flores MD Past Medical History (Last Updated 04/06/19 @ 13:06 by Marilin Armando, CLEMENTE) Arthritis (Acute) Coronary artery disease (Acute) Elevated PSA (Acute) Hyperlipidemia (Acute) Myocardial infarction (Acute ~1992) Swallowing difficulty (Acute) Surgical History (Last Updated 04/06/19 @ 13:11 by Marilin Armando RN) History of back surgery (Acute ~1999) Hx of discectomy (Acute ~1997) Hx of tonsillectomy (Acute) Occupational Therapy Inpatient Evaluation/Re-Eval M1 PT/OT-IP Prior Functional Status Start: 04/13/19 08:45 Freq: NEEDED Status: Active Protocol: Document 04/13/19 08:45 [facility] (Rec: 04/13/19 09:10 [facility] [id number]) Medical Review Prior Functional Status Medical History Reviewed Yes Communication Independent. Mobility and Gait Independent with no devices. Pt states has a walking stick but does not use it. Activities of Daily Living and IADL's Completely independent for all ADl's and IADl's. 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 Social History Household Members none Living Arrangements Mobile home Number of Stairs To Enter/Railing? Pt lives in a double wide trailer with 4 steps and left hand rail going up. Pt has one step to sunken dining room and bilateral rails. Home Environment High Toilet,Tub/Shower Home Equipment Hand Held Shower,Grab Bars Near Toilet,Grab Bars In Shower Employment Status Self-Employed Additional Social History Comment Pt brother to stay with pt as long as needed. Per pt , pt's brother is not very good health and mainly would be able to assist him to do meals and laundry. M2 OT-IP Current Condition Start: 04/13/19 08:45 Freq: Status: Active Protocol: Document 04/13/19 08:45 [facility] (Rec: 04/13/19 09:10 [facility] [id number]) Occupational Therapy Current Condition Current Condition Evaluation Date 04/13/19 Treatment Diagnosis S/P C3-7 ant. disectomy and ant. and post. instrum. fusion Diagnosis Onset Date 04/12/19 Post Operative Precautions Cervical Spine Precautions Soft Collar for Comfort,No Heavy Lifting,Log Roll M3 OT- IP Subjective and Pain Start: 04/13/19 08:45 Freq: Status: Active Protocol: Document 04/13/19 08:45 [facility] (Rec: 04/13/19 09:10 [facility] [id number]) OT- Subjective Occupational Therapy Visit Type Type Initial Evaluation Visit Start Time 08:19 Visit Stop Time 08:44 Total Visit Minutes 25 Occupational Therapy Visit Comments Patient Comments Pt willing to do OT eval. Patient/Caregiver Goals To go home today. OT Pain Assessment Pain When Pain Assessed At Rest Pain Present Pain Present Pain Reported Location Neck Intensity 8 Scale Used Numeric (1 - 10) M4 OT- IP ADL's Start: 04/13/19 08:45 Freq: Status: Active Protocol: Document 04/13/19 08:45 [facility] (Rec: 04/13/19 09:10 [facility] [id number]) OT QVQ-Pjom-Ymnltve General Evaluation Self-Feeding Ability Independent Comments OT Self-Feeding Comments Educated pt of eating softer food, sitting upright to eat , and information given to pt regarding swallowing needs. At this time pt states only able to eat the eggs and not wanting to eat the sausage and requesting to have soup, nursing notified. OT ADL-Oral Care Comments Oral Care Comments Educated to sip into a cup of lean via beding at his hips during mouth care needs. OT ADL-Dressing General Eval Lower Body Dressing Ability Independent Comments OT Dressing Comments Pt able to independently flavio socks and underwear with good safety by sitting intially and then standing. OT ADL-Toileting Comments OT Toileting Comments Pt states already used the toilet earlier. OT ADL-Bathing Comments OT Bathing Comments Educated pt to wear the collar in the shower and can be placed in the dryer. Suggested pt may want to get a shower chair as pt take a long showers. M5 OT- IP IADL's Start: 04/13/19 08:45 Freq: Status: Active Protocol: Document 04/13/19 08:45 [facility] (Rec: 04/13/19 09:10 [facility] [id number]) OT-Instrumental Activities of Daily Living Home Safety Awareness Awareness of Need for Assistance at Home Good Awareness Ability to Problem Solve Emergency Able to Problem Solve Situations Medication Management Medication Management No Deficits Identified Money Management Money Management No Deficits Identified Meal Preparation Meal Preparation Caregiver Provides Assist Blanket Inspector Blanket Inspector Caregiver Provides Assist M6 OT- IP Functional Cognition Start: 04/13/19 08:45 Freq: Status: Active Protocol: Document 04/13/19 08:45 [facility] (Rec: 04/13/19 09:10 [facility] [id number]) Cognitive Factors Limiting Selfcare Function Cognitive Ability Level of Alertness Alert Patient Orientation Name,Age,Birthday,Month,Date, Year,Day of Week,Place, Situation Attention Span Ability Capable of Focused Attention, Capable of Sustained Attention Ability to Follow Commands Able to Follow Multi-Step Commands Memory Description No Deficits Noted Safety Awareness Decreased Ability to Apply Precautions Problem Solving Ability No deficits Noted Cognitive Comments Cognitive Assessment Comments Mainly just needing reminders for cervical precautions as tends to get up and forgetting to do log rolling. OT- Vision and Hearing OT- Hearing Assessment OT- Hearing Assessment WFL OT- Vision Assessment Visual Acuity Glasses All The Time Visual Attentiveness WFL Occular Pursuits WFL M7 OT- IP Mobility and Balance Start: 04/13/19 08:45 Freq: Status: Active Protocol: Document 04/13/19 08:45 [facility] (Rec: 04/13/19 09:10 [facility] [id number]) OT- Bed Mobility Assessment Rolling Type of Rolling Bilateral Level of Assistance Independent Supine to Sit Supine to Sit Assist Independent Sit to Supine Sit to Supine Assist Independent OT-Transfer Assessment Sit to and From Stand Sit to and from Stand Independent Transfers Transfer Ability Standby Assistance Technique Transfer Destination Bed Transfer Technique Stand Step Pivot Devices Transfer Assistive Devices None Comments Mobility Comments Independent with bed mobility and distant SBA for walking in the room. OT- Gait Assessment Gait Gait Assistance Required: Standby Assistance Assistive Devices Assistive Device None OT- Balance Assessment Sitting Balance and Reactions Static Sitting Balance Ability Normal Dynamic Sitting Balance Ability Normal Standing Balance and Reactions Static Standing Balance Ability Normal Dynamic Standing Balance Ability Good M8 OT- IP Objective Assessments Start: 04/13/19 08:45 Freq: Status: Active Protocol: Document 04/13/19 08:45 [facility] (Rec: 04/13/19 09:10 [facility] [id number]) OT Gross Range of Motion Upper Extremity Range of Motion Assessment Within Functional Limits OT-Muscle Tone Assessment Muscle Tone WNL Yes OT Sensation Assessment Comments Summary Comments Pt states no longer has tingling in left arm. M9 OT- IP Assessment and Plan Start: 04/13/19 08:45 Freq: Status: Active Protocol: Document 04/13/19 08:45 [facility] (Rec: 04/13/19 09:10 [facility] [id number]) OT Summary Assessment and Plan Potential Rehabilitation Potential Excellent Analytic Complexity at Evaluation Low Summary OT Impairments Pain Progress Towards Goals Progressing Toward Goals Assessment Summary Pt doing well, main barrier is pain at this time. Pt looking to go home today. Pt to have brother home to assist mainly just for IADl needs. Goals Self-Feeding Goal Independent Grooming Goal Independent Dressing Goal Independent Toileting Goal Independent Bathing Goal Standby Assistance Toilet Transfer Goal Independent Shower Transfer Goal Independent Days to Meet Goals 1 Frequency of Treatment Frequency Of Treatment Once a Day Treatment Plan OT Treatment Plan Patient/Family Education, Discharge Planning Discharge Recommendations OT Discharge Recommendations Home with Assistance
[2019-04-13 10:27] VITALS: TEMP 37.6
--- NOTE | 2019-04-13 11:49 | PT.IIE ---
Current Diagnoses Brachial plexus disorders (04/12/19) Spinal stenosis, cervical region (04/12/19) Radiculopathy, cervical region (04/12/19) Surgery Performed Operation Date: 04/12/19 07:45 Actual Procedures p C3-7 anterior discectomy & anterior/posterior instrumented fusion - Rudy Flores MD Surgical History (Last Updated 04/06/19 @ 13:11 by Marilin Armando, RN) History of back surgery (Acute ~1999) Hx of discectomy (Acute ~1997) Hx of tonsillectomy (Acute) Medical History (Last Updated 04/06/19 @ 13:06 by Marilin Armando RN) Arthritis (Acute) Coronary artery disease (Acute) Elevated PSA (Acute) Hyperlipidemia (Acute) Myocardial infarction (Acute ~1992) Swallowing difficulty (Acute) Physical Therapy Inpatient Evaluation/Re-Eval M1 PT/OT-IP Prior Functional Status Start: 04/12/19 14:51 Freq: NEEDED Status: Active Protocol: Document 04/13/19 09:48 SUELLEN (Rec: 04/13/19 11:12 SUELLEN [id number]) Medical Review Prior Functional Status Medical History Reviewed Yes Diet/Fluid Consistency Regular Communication No noted cognitive or communication deficits. Mobility and Gait Independent with no devices. Pt states has a walking stick but does not use it. Activities of Daily Living and IADL's Completely independent for all ADl's and IADl's. Limited tolerance d/t pain in neck and arms. 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 Social History Household Members none Living Arrangements Mobile home Number of Floors (Floors) One Floor Number of Stairs To Enter/Railing? 4 MIGEL (L railing ascending) Sunken dining room with one step and bilateral rails Home Environment High Toilet,Tub/Shower Home Equipment Straight Cane,Grab Bars In Shower Employment Status Self-Employed Additional Social History Comment Pt lives in double wide trailer in [place]. Pt has 4 MIGEL trailer, and one step within into sunked dining room . Pt's brother will stay with pt as long as needed. Per pt , pt's brother is not very good health and mainly would be able to assist him to do meals and laundry. Pt's other brother lives nearby in [place] and is available to help as needed for more heavy duty tasks. Pt notes that he has a walking stick that he does not typically use at home . M1 PT/OT-IP Prior Functional Status Start: 04/13/19 08:45 Freq: NEEDED Status: Active Protocol: Document 04/13/19 08:45 [facility] (Rec: 04/13/19 09:10 [facility] [id number]) Medical Review Prior Functional Status Medical History Reviewed Yes Communication Independent. Mobility and Gait Independent with no devices. Pt states has a walking stick but does not use it. Activities of Daily Living and IADL's Completely independent for all ADl's and IADl's. 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 Social History Household Members spouse,none Living Arrangements Mobile home Number of Stairs To Enter/Railing? Pt livs in a double wide trailer with 4 steps and left hand rail going up. Pt has one step to sunken dining room and bilateral rails. Home Environment High Toilet,Tub/Shower Home Equipment Hand Held Shower,Grab Bars Near Toilet,Grab Bars In Shower Employment Status Self-Employed Additional Social History Comment Pt brother to stay with pt as long as needed. Per pt , pt's brother is not very good health and mainly would be able to assist him to do meals and laundry. M2 PT-IP Current Condition Start: 04/12/19 14:51 Freq: NEEDED Status: Active Protocol: Document 04/13/19 09:48 JG (Rec: 04/13/19 11:12 SUELLEN [id number]) Physical Therapy Current Condition Current Condition Evaluation Date 04/13/19 Treatment Diagnosis C3-7 posterior fusion/ACDF, limited activity tolerance, difficulty walking. Onset Date 04/12/19 Precautions Cervical Spine Precautions Soft Collar for Comfort,No Heavy Lifting,Log Roll Weight Bearing Status Weight Bearing Status Full Weight Bearing M3 PT-IP Subjective Start: 04/12/19 14:51 Freq: NEEDED Status: Active Protocol: Document 04/13/19 09:48 JG (Rec: 04/13/19 11:12 SUELLEN [id number]) Subjective Physical Therapy Visit Type Type Initial Evaluation Visit Start Time 09:48 Visit Stop Time 10:07 Total Visit Minutes 19 Notes IE led by SPT Elsy, supervised by PT Scooter. Pt's brother Asif attended session. Number of ANALYTICAL CLERK Visits 0 Physical Therapy Visit Comments Patient Comments I am feeling much better now after pain meds. I feel like I 'm ready to go. Patient Goals Return home Therapy Pain Assessment Pain When Pain Assessed During Mobility Pain Present Pain Present Pain Reported Location Neck Description Acute,Sharp,With Movement Pain Behaviors Wincing Pain Management Techniques Distraction,Timing of Activity with Medications M4 PT-IP Mobility and Gait Start: 04/12/19 14:51 Freq: NEEDED Status: Active Protocol: Document 04/13/19 09:48 J (Rec: 04/13/19 11:12 J [id number]) PT-Bed Mobility Assessment Rolling Type of Rolling Log Rolling,Roll to Left Level of Assist Standby Assistance Supine to Sit Supine to Sit Standby Assistance Scooting Scooting to Edge of Bed Standby Assistance PT-Transfer Assessment Sit to and From Stand Sit to and from Stand Standby Assistance,Use of Upper Extremities Equipment Transfer Assistive Device Gait Belt Orthotic/Prosthetic Devices or Brace: Yes Transfers Transfer Destination Chair Transfer Technique ambulate without AD Transfer Ability Level of Assist Contact Guard Assistance,Use of Upper Extremities Comments Mobility Comments Pt in bed upon assessment. Resting BP 143/67. Pt required no more than SBA for bed mobility. After testing strength and sensation at EOB, pt able to stand SBA with UE pushoff. Pt able to ambulate to sink but attempted to use bed and counter for support while ambulating. Pt able to stand at counter SBA to I don/ doff soft collar. Pt then ambulated to the steps for stair training and back to the room where he required no more than SBA to sit in chair. Pt reported feeling mildly dizzy upon initial ambulation, but felt better quickly. BP at end of mobility 146/77. Pt left in chair with call light and needs within reach, brother Asif in room with him. Gait Assessment Gait Gait Assistance Required: Standby Assistance,Contact Guard Assist Distance (Feet) 150 Able to Maintain Weight Bearing Status Yes During Gait Assistive Devices Assistive Device Gait Belt Orthotic/Prosthetic Devices or Brace: Yes Gait Deviations General Gait Pattern Decreased Stride Length, Decreased Feet Clearance Factors Limiting Gait Function Factors Limiting Gait Function Decreased Activity Tolerance, Decreased Sensation,Decreased Strength,Limited Range of Motion,Pain,Poor Balance,Poor Safety Awareness Comments Gait Comments Pt ambulated ~150 ft in hallway. Initial CGA as pt reported mild dizziness but able to ambulate SBA after ~20 ft. Pt ambulates with short, shuffling steps and limited foot clearance. Pt demonstrated poor safety awareness and impulsivity during ambulation and would stop and turn abruptly to look at things in the hallway or talk. Stair Climbing Assessment Evaluation Level of Assist On Stairs Standby Assistance,Contact Guard Assistance Devices Stair Climbing Assistive Devices Left Railing Technique/Endurance Stair Climbing Direction Ascend and Descend Stair Climbing Technique Step to Step Number of Steps Climbed 3 Query Text: Stair Climbing Set # Repetitions (reps) 2 Comments Stair Climbing Comments Pt required no more than CGA during stair climbing. Educated pt to ascend/descend with step to gait pattern for improved safety. After initial cuing pt demonstrated good safety awareness on the stairs with L railing support. Able to complete last repetition SBA PT-Balance Assessment Sitting Balance and Reactions Static Sitting Balance Ability Good Dynamic Sitting Balance Ability Good Standing Balance and Reactions Static Standing Balance Ability Fair Dynamic Standing Balance Ability Fair M5 PT-IP Objective Assessments Start: 04/12/19 14:51 Freq: NEEDED Status: Active Protocol: Document 04/13/19 09:48 SUELLEN (Rec: 04/13/19 11:12 Danae [id number]) Orientation Orientation/Cognition Level of Alertness Alert Orientation Name,Day of Week,Place, Situation Language Function Ability No Deficits Noted Safety Awareness Decreased Safety Awareness Memory Description No Deficits Noted Comments No noted cognitive or communication deficits. Pt is impulsive during mobility and required initial cuing for safety. Gross Range of Motion Upper Extremity ROM Assessment Within Functional Limits Lower Extremity ROM Assessment Within Functional Limits Strength Upper Extremity Strength Assessment Within Functional Limits Lower Extremity Strength Assessment Within Functional Limits Sensation Assessment Sensation Gross Sensation Left UE Impaired Light Touch Impaired Sensation Description Numbness Comments Sensation Comments Pt describes patch of numbness on L anterior upper arm. Otherwise normal sensation on UEs, which pt reports is improved since before surgery. Muscle Tone Muscle Tone WNL Yes M6 PT-IP Treatment Start: 04/12/19 14:51 Freq: NEEDED Status: Active Protocol: Document 04/13/19 09:48 SUELLEN (Rec: 04/13/19 11:12 Danae [id number]) Physical Therapy Treatment Education Education Provided Precautions,Safety Brace Education Rubens Bowen,Patient M7 PT-IP Assessment and Plan Start: 04/12/19 14:51 Freq: NEEDED Status: Active Protocol: Document 04/13/19 09:48 SUELLEN (Rec: 04/13/19 11:12 SUELLEN [id number]) PT Summary Assessment and Plan Potential Rehabilitation Potential Excellent Status of Condition at Evaluation Stable Summary Impairments Pain,ROM,Strength,Balance, Sensation,Cognition,Bed Mobility,Transfers,Gait, Activity Tolerance Assessment Summary Pt is low complexity 63 yo male presenting 1 day s/p C3-7 posterior fusion and ACDF. Pt reports I PLOF but limitations in activity tolerance d/t pain and weakness in arms. Pt required no more than SBA for bed mobility and CGA for transfers , ambulation, and stairs. Pt demonstrated improved safety and independence with cuing and repetition. Pt safe for d/ c to home with assist once medically cleared. Frequency of Treatment Frequency Of Treatment Discharge Recommendations To Nursing Amount of Assist Needed Standby Assistance Discharge Recommendations PT Discharge Recommendations Home with Assistance, Outpatient PT
--- NOTE | 2019-04-13 11:50 | PT.IIE ---
Current Diagnoses Brachial plexus disorders (04/12/19) Spinal stenosis, cervical region (04/12/19) Radiculopathy, cervical region (04/12/19) Surgery Performed Operation Date: 04/12/19 07:45 Actual Procedures p C3-7 anterior discectomy & anterior/posterior instrumented fusion - Rudy Flores MD Surgical History (Last Updated 04/06/19 @ 13:11 by Marilin Armando, RN) History of back surgery (Acute ~1999) Hx of discectomy (Acute ~1997) Hx of tonsillectomy (Acute) Medical History (Last Updated 04/06/19 @ 13:06 by Marilin Armando RN) Arthritis (Acute) Coronary artery disease (Acute) Elevated PSA (Acute) Hyperlipidemia (Acute) Myocardial infarction (Acute ~1992) Swallowing difficulty (Acute) Physical Therapy Inpatient Evaluation/Re-Eval M1 PT/OT-IP Prior Functional Status Start: 04/12/19 14:51 Freq: NEEDED Status: Active Protocol: Document 04/13/19 09:48 SUELLEN (Rec: 04/13/19 11:12 SUELLEN [id number]) Medical Review Prior Functional Status Medical History Reviewed Yes Diet/Fluid Consistency Regular Communication No noted cognitive or communication deficits. Mobility and Gait Independent with no devices. Pt states has a walking stick but does not use it. Activities of Daily Living and IADL's Completely independent for all ADl's and IADl's. Limited tolerance d/t pain in neck and arms. 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 Social History Household Members none Living Arrangements Mobile home Number of Floors (Floors) One Floor Number of Stairs To Enter/Railing? 4 MIGEL (L railing ascending) Sunken dining room with one step and bilateral rails Home Environment High Toilet,Tub/Shower Home Equipment Straight Cane,Grab Bars In Shower Employment Status Self-Employed Additional Social History Comment Pt lives in double wide trailer in [place]. Pt has 4 MIGEL trailer, and one step within into sunked dining room . Pt's brother will stay with pt as long as needed. Per pt , pt's brother is not very good health and mainly would be able to assist him to do meals and laundry. Pt's other brother lives nearby in [place] and is available to help as needed for more heavy duty tasks. Pt notes that he has a walking stick that he does not typically use at home . M1 PT/OT-IP Prior Functional Status Start: 04/13/19 08:45 Freq: NEEDED Status: Active Protocol: Document 04/13/19 08:45 [facility] (Rec: 04/13/19 09:10 [facility] [id number]) Medical Review Prior Functional Status Medical History Reviewed Yes Communication Independent. Mobility and Gait Independent with no devices. Pt states has a walking stick but does not use it. Activities of Daily Living and IADL's Completely independent for all ADl's and IADl's. 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 Social History Household Members spouse,none Living Arrangements Mobile home Number of Stairs To Enter/Railing? Pt livs in a double wide trailer with 4 steps and left hand rail going up. Pt has one step to sunken dining room and bilateral rails. Home Environment High Toilet,Tub/Shower Home Equipment Hand Held Shower,Grab Bars Near Toilet,Grab Bars In Shower Employment Status Self-Employed Additional Social History Comment Pt brother to stay with pt as long as needed. Per pt , pt's brother is not very good health and mainly would be able to assist him to do meals and laundry. M2 PT-IP Current Condition Start: 04/12/19 14:51 Freq: NEEDED Status: Active Protocol: Document 04/13/19 09:48 JG (Rec: 04/13/19 11:12 SUELLEN [id number]) Physical Therapy Current Condition Current Condition Evaluation Date 04/13/19 Treatment Diagnosis C3-7 posterior fusion/ACDF, limited activity tolerance, difficulty walking. Onset Date 04/12/19 Precautions Cervical Spine Precautions Soft Collar for Comfort,No Heavy Lifting,Log Roll Weight Bearing Status Weight Bearing Status Full Weight Bearing M3 PT-IP Subjective Start: 04/12/19 14:51 Freq: NEEDED Status: Active Protocol: Document 04/13/19 09:48 JG (Rec: 04/13/19 11:12 SUELLEN [id number]) Subjective Physical Therapy Visit Type Type Initial Evaluation Visit Start Time 09:48 Visit Stop Time 10:07 Total Visit Minutes 19 Notes IE led by SPT Elsy, supervised by PT Scooter. Pt's brother Asif attended session. Number of RN APPEALS Visits 0 Physical Therapy Visit Comments Patient Comments I am feeling much better now after pain meds. I feel like I 'm ready to go. Patient Goals Return home Therapy Pain Assessment Pain When Pain Assessed During Mobility Pain Present Pain Present Pain Reported Location Neck Description Acute,Sharp,With Movement Pain Behaviors Wincing Pain Management Techniques Distraction,Timing of Activity with Medications M4 PT-IP Mobility and Gait Start: 04/12/19 14:51 Freq: NEEDED Status: Active Protocol: Document 04/13/19 09:48 J (Rec: 04/13/19 11:12 J [id number]) PT-Bed Mobility Assessment Rolling Type of Rolling Log Rolling,Roll to Left Level of Assist Standby Assistance Supine to Sit Supine to Sit Standby Assistance Scooting Scooting to Edge of Bed Standby Assistance PT-Transfer Assessment Sit to and From Stand Sit to and from Stand Standby Assistance,Use of Upper Extremities Equipment Transfer Assistive Device Gait Belt Orthotic/Prosthetic Devices or Brace: Yes Transfers Transfer Destination Chair Transfer Technique ambulate without AD Transfer Ability Level of Assist Contact Guard Assistance,Use of Upper Extremities Comments Mobility Comments Pt in bed upon assessment. Resting BP 143/67. Pt required no more than SBA for bed mobility. After testing strength and sensation at EOB, pt able to stand SBA with UE pushoff. Pt able to ambulate to sink but attempted to use bed and counter for support while ambulating. Pt able to stand at counter SBA to I don/ doff soft collar. Pt then ambulated to the steps for stair training and back to the room where he required no more than SBA to sit in chair. Pt reported feeling mildly dizzy upon initial ambulation, but felt better quickly. BP at end of mobility 146/77. Pt left in chair with call light and needs within reach, brother Asif in room with him. Gait Assessment Gait Gait Assistance Required: Standby Assistance,Contact Guard Assist Distance (Feet) 150 Able to Maintain Weight Bearing Status Yes During Gait Assistive Devices Assistive Device Gait Belt Orthotic/Prosthetic Devices or Brace: Yes Gait Deviations General Gait Pattern Decreased Stride Length, Decreased Feet Clearance Factors Limiting Gait Function Factors Limiting Gait Function Decreased Activity Tolerance, Decreased Sensation,Decreased Strength,Limited Range of Motion,Pain,Poor Balance,Poor Safety Awareness Comments Gait Comments Pt ambulated ~150 ft in hallway. Initial CGA as pt reported mild dizziness but able to ambulate SBA after ~20 ft. Pt ambulates with short, shuffling steps and limited foot clearance. Pt demonstrated poor safety awareness and impulsivity during ambulation and would stop and turn abruptly to look at things in the hallway or talk. Stair Climbing Assessment Evaluation Level of Assist On Stairs Standby Assistance,Contact Guard Assistance Devices Stair Climbing Assistive Devices Left Railing Technique/Endurance Stair Climbing Direction Ascend and Descend Stair Climbing Technique Step to Step Number of Steps Climbed 3 Query Text: Stair Climbing Set # Repetitions (reps) 2 Comments Stair Climbing Comments Pt required no more than CGA during stair climbing. Educated pt to ascend/descend with step to gait pattern for improved safety. After initial cuing pt demonstrated good safety awareness on the stairs with L railing support. Able to complete last repetition SBA PT-Balance Assessment Sitting Balance and Reactions Static Sitting Balance Ability Good Dynamic Sitting Balance Ability Good Standing Balance and Reactions Static Standing Balance Ability Fair Dynamic Standing Balance Ability Fair M5 PT-IP Objective Assessments Start: 04/12/19 14:51 Freq: NEEDED Status: Active Protocol: Document 04/13/19 09:48 SUELLEN (Rec: 04/13/19 11:12 Danae [id number]) Orientation Orientation/Cognition Level of Alertness Alert Orientation Name,Day of Week,Place, Situation Language Function Ability No Deficits Noted Safety Awareness Decreased Safety Awareness Memory Description No Deficits Noted Comments No noted cognitive or communication deficits. Pt is impulsive during mobility and required initial cuing for safety. Gross Range of Motion Upper Extremity ROM Assessment Within Functional Limits Lower Extremity ROM Assessment Within Functional Limits Strength Upper Extremity Strength Assessment Within Functional Limits Lower Extremity Strength Assessment Within Functional Limits Sensation Assessment Sensation Gross Sensation Left UE Impaired Light Touch Impaired Sensation Description Numbness Comments Sensation Comments Pt describes patch of numbness on L anterior upper arm. Otherwise normal sensation on UEs, which pt reports is improved since before surgery. Muscle Tone Muscle Tone WNL Yes M6 PT-IP Treatment Start: 04/12/19 14:51 Freq: NEEDED Status: Active Protocol: Document 04/13/19 09:48 SUELLEN (Rec: 04/13/19 11:12 Danae [id number]) Physical Therapy Treatment Education Education Provided Precautions,Safety Brace Education Rubens Bowen,Patient M7 PT-IP Assessment and Plan Start: 04/12/19 14:51 Freq: NEEDED Status: Active Protocol: Document 04/13/19 09:48 SUELLEN (Rec: 04/13/19 11:12 SUELLEN [id number]) PT Summary Assessment and Plan Potential Rehabilitation Potential Excellent Status of Condition at Evaluation Stable Summary Impairments Pain,ROM,Strength,Balance, Sensation,Cognition,Bed Mobility,Transfers,Gait, Activity Tolerance Assessment Summary Pt is low complexity 63 yo male presenting 1 day s/p C3-7 posterior fusion and ACDF. Pt reports I PLOF but limitations in activity tolerance d/t pain and weakness in arms. Pt required no more than SBA for bed mobility and CGA for transfers , ambulation, and stairs. Pt demonstrated improved safety and independence with cuing and repetition. Pt safe for d/ c to home with assist once medically cleared. Frequency of Treatment Frequency Of Treatment Discharge Recommendations To Nursing Amount of Assist Needed Standby Assistance Discharge Recommendations PT Discharge Recommendations Home with Assistance, Outpatient PT SPT's noted reviewed by PT Scooter
--- NOTE | 2019-04-13 12:55 | PC.NURSE ---
Fine crackles to bilateral posterior bases; patient instructed to use IS, 2000 mL; tingling to bilateral hands, at baseline; moderate to severe pain to neck; PO [place], Vistiril, and Valium for Spasms; Drsg changed, 4 X4 gauze secured with 2 overlapping tegaderm; small wound incisions X4 visualized, covered with petroleum ribbon gauze; estefani-skin pink; anterior drsg c/d/i; c-collar secured; discharge instructions provided by student nurse, including f/u appt, s/s infection, RX medications; brother, Asif present for instructions. Patient escorted via wheelchair to personal vehicle with belongings in hand
== END 2019-04-13 12:30 | disposition home or self-care (01) | DRG 454 ==
PROVIDERS: Admitting Provider Orthopaedic Surgery; Family Provider Internal Medicine; PCP Internal Medicine; Visit Provider Orthopaedic Surgery
PROC: 0RG20A0 Fusion of 2 or more Cervical Vertebral Joints with Interbody Fusion Device, Anterior Approach, Anterior Column, Open Approach (ICD-10-PCS; principal; 2019-04-12 07:45)
DX: M48.02 Spinal stenosis, cervical region (principal); G99.2 Myelopathy in diseases classified elsewhere; M54.12 Radiculopathy, cervical region; I25.10 Atherosclerotic heart disease of native coronary artery without angina pectoris
CPT/HCPCS: 72040; 76000; 94760; 97161; 97165; 97535; C1776; J0360; J0690; J1100; J1170; J2060; J2405; J2704; J3010